=== PATIENT | female | born 2000 | race Hispanic/Latino ===

== ENCOUNTER 2021-06-23 14:13 | Outpatient (CLI) | payer OTHER | END 2021-06-23 14:14 | disposition home or self-care (01) | LOC: CSHULT 14:13 | PROVIDERS: ATTEND Family Medicine | DX: Z34.83 Encounter for supervision of other normal pregnancy, third trimester (principal); Z3A.26 26 weeks gestation of pregnancy | CPT/HCPCS: 76805 ==

== ENCOUNTER 2021-09-09 09:26 | Inpatient (IN) | payer MEDICAID, OTHER, SELFPAY ==
[2021-09-09 10:10] VITALS: BMI 27.1
[2021-09-09] MEDS ORDERED: Lidocaine 1% (PF) 30 ML VIAL SC PRN (10:28)
[2021-09-09] MEDS ORDERED: Misoprostol 200 MCG TAB PR PRN (10:28)
[2021-09-09] MEDS ORDERED: Acetaminophen 500 MG TAB PO PRN (10:28)
[2021-09-09] MEDS ORDERED: Ibuprofen 800 MG TAB PO PRN (10:28)
[2021-09-09] MEDS ORDERED: Methylergonovine 0.2 MG/ML VIAL IM PRN (10:28)
[2021-09-09] MEDS ORDERED: hydrALAZINE 20 MG/ML VIAL SLOW IVP PRN ×2 (10:28→16:25)
[2021-09-09] MEDS ORDERED: Butorphanol Tartrate 1 MG/ML VIAL SLOW IVP PRN (10:28)
[2021-09-09] MEDS ORDERED: Ondansetron PF 4 MG/2 ML Vial IVP PRN ×2 (10:28→16:25)
[2021-09-09] MEDS ORDERED: Promethazine HCl 25 MG/ML VIAL IM PRN (10:28)
[2021-09-09] MEDS ORDERED: Carboprost 250 MCG/ML AMP IM PRN (10:28)
[2021-09-09] MEDS ORDERED: Diphenoxylate HCl/Atropine Tablet PO PRN (10:28)
[2021-09-09] MEDS ORDERED: NS w/ Oxytocin 30 units 500 ML IV SCH ×3 (10:30→16:25)
[2021-09-09] MEDS ORDERED: Lactated Ringer's 1,000 ML IV SCH (10:30)
[2021-09-09 11:29] LABS: Hemoglobin 13.2 g/dL (12.0-15.5); Mean Corpuscular HGB CONC 34.6 g/dL (32.0-36.0); Mean Corpuscular Hemoglobin 29.1 pg (27.0-33.0); Mean Corpuscular Volume 83.9 fl (81.6-98.3); Mean Platelet Volume 11.1 fl (7.4-10.4); Platelet Count 255 10x3/uL (150-450); RBC Distribution Width 13.5 % (11.5-14.5); Red Blood Cell (RBC) Count 4.54 10x6/uL (3.90-5.03); White Blood Cell (WBC) Count 7.4 10x3/uL (3.5-10.5)
[2021-09-09 12:02] LABS: Hep B Surf Ag Non-Reactive S/CO (NonReactive); Syphilis Antibody Nonreactive (Nonreactive); Syphilis Antibody Index 0.15 S/CO (<1.00 Non-Reactive)
[2021-09-09 12:03] LABS: HBSAg Index 0.15 S/CO (0-0.99)
[2021-09-09 13:26] LABS: SARS-CoV-2 NAA Rapid Test Not Detected (NotDetected)
[2021-09-09] MEDS ORDERED: Phytonadione Neonatal 1 MG/0.5 ML AMP ONE (14:03)
[2021-09-09] MEDS ORDERED: Erythromycin Base 0.5% Oint 1 GM TUBE ONE (14:03)
[2021-09-09] MEDS ORDERED: Lanolin Ointment 7 GM TUBE TOP PRN (16:25)
[2021-09-09] MEDS ORDERED: Benzocaine-Menthol 82.5 ML CAN TOP PRN (16:25)
[2021-09-09] MEDS ORDERED: Bisacodyl 10 MG SUPP PR PRN (16:25)
[2021-09-09] MEDS ORDERED: Boostrix 0.5 ML (Tdap) VIAL IM ONE (16:25)
[2021-09-09] MEDS ORDERED: Preparation H Ointment 28 GM TUBE PR PRN (16:25)
[2021-09-09] MEDS ORDERED: Milk Of Magnesia 30 ML UDCUP PO PRN (16:25)
[2021-09-09] MEDS ORDERED: Misoprostol 200 MCG TAB VAG PRN (16:25)
[2021-09-09] MEDS ORDERED: Ferrous Sulfate 325 MG TAB PO SCH (17:00)
[2021-09-09] MEDS ORDERED: Ibuprofen 800 MG TAB PO SCH (17:00)
[2021-09-09] MEDS: Ibuprofen 800 MG TAB PO SCH (21:15)
[2021-09-09] MEDS: Docusate 100 MG CAP PO SCH (21:15)
[2021-09-10] MEDS: Ibuprofen 800 MG TAB PO SCH ×2 (05:13→13:38)
[2021-09-10 05:33] VITALS: TEMP 98
[2021-09-10] MEDS ORDERED: Prenatal Vitamin 1 TAB PO SCH (09:00)
[2021-09-10 11:04] VITALS: BP 110/60
[2021-09-10] MEDS: Docusate 100 MG CAP PO SCH (13:39)
== END 2021-09-10 16:16 | disposition home or self-care (01) | DRG 807 ==
LOC: CSHLD/OP 09:26 → CSHLD 13:59 → CSHPP 16:05
PROVIDERS: ADMIT Family Medicine; ATTEND Family Medicine
PROC: 10E0XZZ Delivery of Products of Conception, External Approach (ICD-10-PCS; principal; 2021-09-09)
PROC: 10907ZC Drainage of Amniotic Fluid, Therapeutic from Products of Conception, Via Natural or Artificial Opening (ICD-10-PCS; 2021-09-09)
DX: O80 Encounter for full-term uncomplicated delivery (principal); Z37.0 Single live birth; Z20.822 Contact with and (suspected) exposure to COVID-19; Z3A.38 38 weeks gestation of pregnancy
CPT/HCPCS: 36415; 85027; 86780; 86850; 86900; 86901; 87340; 99285; J2001; J2590; U0002